=== PATIENT | male | born 1945 | race African-American/Black ===

== ENCOUNTER 2020-07-02 09:18 | Emergency (ER) | payer MEDICARE ==
[~2020-07-02] VITALS: Ht 188 cm; Wt 109.1 kg
[2020-07-02 10:07] LABS: BASOPHILS % (AUTO) 0.4 % (0.0-2.0); EOSINOPHILS % (AUTO) 6.9 % (1.0-6.0); HEMATOCRIT 35.7 % (41-53); HEMOGLOBIN 11.6 g/dL (13.5-17.5); LYMPHOCYTES # (AUTO) 2.1 K/uL (1.0-4.8); LYMPHOCYTES % (AUTO) 42.8 % (22.0-44.0); MEAN CORPUSCULAR HEMOGLOBIN 26.8 pg (26.0-34.0); MEAN CORPUSCULAR HGB CONC 32.5 G/dL (31.0-37.0); MEAN CORPUSCULAR VOLUME 83 fL (80-100); MONOCYTES # (AUTO) 0.4 K/uL (0.1-1.0); MONOCYTES % (AUTO) 8.3 % (2.0-9.0); NEUTROPHILS # (AUTO) 2.1 K/uL (1.8-7.7); NEUTROPHILS % (AUTO) 41.6 % (40.0-70.0); PLATELET COUNT (AUTO) 269 K/uL (150-450); RED BLOOD CELL COUNT(AUTO) 4.33 MIL/uL (4.50-5.90); RED CELL DISTRIBUTION WIDTH 15.6 % (11.5-14.5)
[2020-07-02] MEDS ORDERED: CLOP75TA60 PO (10:14)
[2020-07-02 10:36] LABS: CREATININE 1.21 mg/dL (0.60-1.30); POTASSIUM 3.3 mmol/L (3.5-5.1)
[2020-07-02 10:39] LABS: ALBUMIN 3.3 g/dL (3.4-5.0); BILIRUBIN,TOTAL 0.3 mg/dL (0.1-1.0); TOTAL PROTEIN, SERUM 7.9 g/dL (6.4-8.2)
[2020-07-02 10:41] LABS: TROPONIN I 0.1 ng/mL (0.00-0.05)
[2020-07-02 10:54] LABS: LACTIC ACID 4.3 mmol/L (0.4-2.0)
[2020-07-02 10:55] LABS: COVID AG,FIA SOURCE NASOPHARYNGEAL
[2020-07-02 11:32] LABS: AMPHET/METH SCREEN,URINE NEGATIVE (NEGATIVE); BARBITURATE SCREEN, URINE NEGATIVE (NEGATIVE); BENZODIAZEPINES SCREEN,URINE POSITIVE (NEGATIVE); CANNABINOID SCREEN,URINE NEGATIVE (NEGATIVE); COCAINE SCREEN,URINE NEGATIVE (NEGATIVE); METHADONE SCREEN, URINE NEGATIVE (NEGATIVE); OPIATE SCREEN,URINE NEGATIVE (NEGATIVE)
[2020-07-02 11:37] LABS: PHENCYCLIDINE SCREEN,URINE NEGATIVE (NEGATIVE)
[2020-07-02 11:41] LABS: APPEARANCE,URINE CLEAR (CLEAR); BILIRUBIN,URINE NEGATIVE (NEGATIVE); GLUCOSE, URINE (UA) NEGATIVE (NEGATIVE); KETONES,URINE NEGATIVE (NEGATIVE); LEUKOCYTE ESTERASE ,URINE NEGATIVE (NEGATIVE); NITRATE,URINE NEGATIVE (NEGATIVE); OCCULT BLOOD,URINE NEGATIVE (NEGATIVE); PROTEIN,URINE SEE CONFIRM (NEGATIVE)
[2020-07-02 11:43] LABS: SULFOSALICYLIC ACID,URINE 2+ (Negative)
[2020-07-02 11:44] LABS: BACTERIA,URINE None Seen /HPF (None Seen); RBC,URINE None Seen /HPF (0-2); WBC,URINE None Seen /HPF (0-5)
[2020-07-02] MEDS ORDERED: SODIUM CHLORIDE 0.9% 1,000 ML IV ONE (11:45)
[2020-07-02] MEDS ORDERED: LevETIRAcetam 1,000 MG in DEXTROSE 5%-WATER 100 ML IV ONE (11:45)
[2020-07-02] MEDS ORDERED: LORazepam 2 MG/ML VIAL IVP ONE ×2 (11:45→14:45)
[2020-07-02] MEDS ORDERED: SODIUM CHLORIDE 0.9% 0 ML ONE (13:57)
[2020-07-02] MEDS ORDERED: IOVERSOL 350 MG/ML 100 ML VIAL ONE ×2 (13:57→14:44)
[2020-07-02] MEDS ORDERED: PHENYTOIN SODIUM IV ONE (14:00)
[2020-07-02] MEDS ORDERED: SODIUM CHLORIDE 0.9% IV ONE (14:00)
[2020-07-02 14:39] VITALS: BP 116/62
[2020-07-02] MEDS ORDERED: SODIUM CHLORIDE 0.9% 100 ML ONE (14:44)
== END 2020-07-02 15:45 | disposition designated cancer center or children's hospital (05) ==
LOC: EMS 09:18 → EDBD 09:18 → EMS 15:45
DX: G40.901 Epilepsy, unspecified, not intractable, with status epilepticus (principal); R77.8 Other specified abnormalities of plasma proteins; E11.9 Type 2 diabetes mellitus without complications; I10 Essential (primary) hypertension; F17.200 Nicotine dependence, unspecified, uncomplicated; Z20.822 Contact with and (suspected) exposure to COVID-19
CPT/HCPCS: 36415; 70450; 70496; 71045; 80053; 80307; 81001; 82140; 83605; 84484; 85025; 85730; 87040; 87426; 93005; 96365; 96366; 96367; 96375; 96376; 99291; G0480; J0712; J1165; J2060; J7030; J7050 ×2; J7060; Q9967